=== PATIENT | female | born 1950 | race Caucasian/White ===

== ENCOUNTER 2019-03-16 05:10 | Day surgery (SDC) | payer MEDICARE ==
[2019-03-15 11:40] LABS: HEMATOCRIT 38.3 % (36.0-48.0); HEMOGLOBIN 13.2 g/dL (12-16); MCH 31.8 pg (26.0-34.0); MCHC 34.5 g/dL (31.0-37.0); MCV 92.3 fL (80.0-100.0); MEAN PLATELET VOLUME 10.3 fL (7.4-10.4); PLATELET COUNT 221 10x3/uL (130-400); RBC 4.15 10x6/uL (4.00-5.40); RDW 13.4 % (11.5-14.5); WBC 8.3 10x3/uL (4.8-10.8)
[2019-03-15 13:09] LABS: EOSINOPHILS 1 % (0-7); LYMPHOCYTES 46 % (15-50); MONOCYTES 6 % (2-11); NEUTROPHILS 46 % (40-80); PLATELET ESTIMATE NORMAL
[~2019-03-16] VITALS: Ht 162.6 cm; Wt 85.5 kg
[2019-03-16] VITALS (7 sets, daily range): BP systolic 131–144; BP diastolic 60–77; Ht 162.6 cm; Wt 85.5 kg
[~2019-03-16 05:10] MED LIST: LEVOTHYROXINE75 MCG PO; RESTORIL15 MG PO
[2019-03-16] MEDS ORDERED: [UNRECOGNIZED DRUG - OTHER] (06:21)
--- NOTE | 2019-03-16 07:55 | NUR ---
16FR PINTO PLACED USING STERILE TECHNIQUE. INFLATED BALLOON WITH 10CC OF FLUID, SECURED STAT LOCK TO L.INNER THIGH, IMMEDIATE FLOW OF 50CC CLEAR YELLOW URINE. WILL HANG TO GRAVITY ORDERED VERBAL ORDER PER . WILL CTM.
--- NOTE | 2019-03-16 08:30 | NUR ---
PT TO LABOR AND DELIVERY BY TAI WITH CIERRA JEWEL INSPECTOR. WILL RETURN TO RECEIVE PT TO 1220 WHEN THIS RN IS FINISHED WITH ANOTHER PT.
--- NOTE | 2019-03-16 08:45 | NUR ---
RECEIVED PT TO 1220 FROM RR RN, CIERRA, WITH REPORT RECEIVED PRIOR. PT IS POST D/C AND IUD REMOVAL. ABDOMEN PALPATES SOFT. PT HAS 30 ML PINTO BULB PLACED IN UTERUS BY , AND HAS PINTO CATH DRAINING YELLOR URINE. SCANT AMOUNT DRIED BLOOD NOTED ON CHUX UNDERNEATH. NO BRIGHT RED BLEEDING NOTED. NO DRAINAGE NOTED IN PINTO BAG CONNECTED TO UTERINE PINTO BULB. PT DENIES PAIN OR NEEDS AT THIS TIME. PT DENIES NAUSEA, SOB, OR DIFFICULTY BREATHING. SRUP X2, CALL LIGHT AND PHONE WITHIN REACH. AT BEDSIDE.
--- NOTE | 2019-03-16 09:30 | NUR ---
PT IS SITTING UP IN THE BED, TALKING TO ARNNIG-[id number]. MEDICATION ADM RECORD REVIEWED WITH PT. SEE EMAR FOR ALL MEDS ADM BY THIS RN. ICE WATER AND JELLO SERVED TO PT. PT CONTINUES TO DENY NAUSEA, SOB, OR DIFFICULTY BREATHING. SRUP X2, CALL LIGHT AND PHONE WITHIN REACH.
--- NOTE | 2019-03-16 10:15 | NUR ---
PT SITTING UP IN THE BED, HAS TOLERATED JELLO AND ICE WATER WITHOUT NAUSEA. PT IS TALKING ON HER CELL PHONE. VISITOR AT BEDSIDE. PT DENIES ALL NEEDS AT THIS TIME.
--- NOTE | 2019-03-16 12:45 | NUR ---
DR. HOPE ON UNIT.
--- NOTE | 2019-03-16 12:50 | NUR ---
DR. HOPE TO PT'S ROOM, TO DISCUSS PLAN OF CARE.
--- NOTE | 2019-03-16 13:35 | NUR ---
IV TO LEFT AC DC'D PER VERBAL ORDER OF DR. HOPE, AND 22 G CATH ON SECOND ATTEMPT TO RIGHT HAND, SL AND FLUSHED WITH 10 CC'S NS, FLUSHES EASILY WITHOUT REDNESS OR SWELLING TO IV SITE. PT HAS FINISHED EATING HER LUNCH, AND DENIES ALL OTHER NEEDS. SRUP X2, CALL LIGHT AND PHONE WITHIN REACH.
--- NOTE | 2019-03-16 16:15 | NUR ---
DR. HOPE RETURNS CALL, PROGRESS REPORT GIVEN TO MD, AND INFORMED MD THAT PT IS STATING NURSE IS SUPPOSED TO START DEFLATING THE PINTO BULB PLACED IN UTERUS. PT IS ALSO ASKING ABOUT TAKING OUT THE URINARY PINTO CATH. DR. HOPE STATES HE WILL PLACE ORDERS A NURSING MESSAGE FOR 0400 03/17/19, TO DEFLATE PINTO BULB IN UTERUS BY 15 CC'S, AND START PAD COUNT AT THAT TIME. DR. HOPE ALSO STATES IT IS UP TO THE PATIENT IF SHE WANTS TO TAKE OUT THE URINARY PINTO CATH NOW OR WAIT UNTIL AM, SHE WILL STILL HAVE THE UTERINE PINTO CATH IN PLACE. TO PT'S ROOM, PLAN OF CARE DISCUSSED WITH PT. PT OPTS TO LEAVE URINARY PINTO CATH IN PLACE UNTIL AM. SCANT AMOUNT OF BRIGHT RED BLOOD NOTED ON PERIPAD, PERICARE DONE WITH WARM WET WASHCLOTHS, CHUX AND PINK PAD CHANGED, AND NEW PERIPAD PLACED. PINTO CATH EMPTIED WITH TOTAL OF 1200 ML'S YELLOW URINE EMPTIED. VS OBTAINED. PT IS TALKING AND LAUGHING WITH VISITOR WHILE VS ARE OBTAINED. PT DENIES NAUSEA, PAIN, DIFFICULTY BREATHING, DIZZINESS, OR SOB AT THIS TIME. PT STATES THE PERCOCET DOES SEEM TO MAKE HER MOUTH VERY DRY, OFFERED TO CALL MD TO CHANGE PAIN MED, PT STATES SHE WILL STAY WITH THE PERCOCET FOR NOW. LARGE MUG OF ICE WATER SERVED TO PT. SRUP X2, CALL LIGHT AND PHONE WITHIN REACH.
--- NOTE | 2019-03-16 17:00 | NUR ---
DIETARY SERVES SUPPER TRAY, PT DENIES NEEDS AT THIS TIME.
--- NOTE | 2019-03-16 17:40 | NUR ---
DR HOPE PHONES UNIT AND GIVES ORDER FOR CIPRO AND FLAGYL NOW, AND AMBIEN AT BEDTIME. SEE DEMONSTRATOR SALES FOR DOSAGE DETAILS.
--- NOTE | 2019-03-16 18:43 | NUR ---
DR HOPE CALLS UNIT, GIVES ORDERS TO DEFLATE UTERINE CATH AT 0400 BY 15MLS ONLY, WATCH BLEEDING TILL 0600, IF NO BRIGHT RED OR BRISK BLEEDING , MAY REMOVE UTERINE CATH AT 0700, IF BRIGHT RED OR BRISK BLEEDING NOTED, RE-INLFATE UTERINE CATH BALLOON, MAKE PT NPO AFTER MIDNIGHT, AND INITIATE LR TO INFUSE AT 150 ML/HR AFTER MIDNIGHT, ORDERS READ BACK AND VERIFIED
--- NOTE | 2019-03-16 19:15 | NUR ---
ASSESSMENT PER FLOW SHEET, VS OBTAINED, SALINE LOCK IN RIGHT HAND INTACT WITH NO REDNESS OR EDEMA, SALINE LOCK FLUSHED WITH 10MLS OF NS WITH NO DIFFICULTY, PINTO CATH INTACT DRAINING CLEAR YELLOW URINE, EMPTIED 350 MLS FROM PINTO CHAMBER TO PINTO BAG, UTERINE CATH IN PLACED, ONDINA PAD CHANGED, SCANT BLEEDING NOTED ON ONDINA PAD, PT DENIES PAIN, REQUESTED AND SERVED FRESH H20, POC DISCUSSED WITH PT REGARDING DR MG ORDERS, PT VERBALIZES UNDERSTANDING, PT DENIES FURTHER NEEDS AT THIS TIME
--- NOTE | 2019-03-16 20:06 | NUR ---
ADM RADHA PER MD ORDERS, SEE EMAR, PT INFORMED THAT I WILL BE MOVING HER SHORTLY TO ANOTHER ROOM, PT VERBALIZES UNDERSTANDING, S/O AT BEDSIDE
--- NOTE | 2019-03-16 20:30 | NUR ---
PT TRANSFERRED VIA WC TO ROOM 1257 WITH ALL BELONGINGS, PT ORIENTED TO ROOM, BED IN LOW POSITION, SIDE RAILS X 2, CALL LIGHT IN REACH
--- NOTE | 2019-03-16 21:10 | NUR ---
PT DESIGN ENGINEER MARINE EQUIPMENT LIGHT, PT REPORTS NEEDING TO HAVE A BM, ASSISTED PT UP TO BR, GAIT STEADY, PT INST TO USE CALL LIGHT FOR ANY ASSISTANCE WHILE IN BR OR CALL LIGHT WHEN BACK TO BED
--- NOTE | 2019-03-16 21:31 | NUR ---
PT FLARER LIGHT, PT REPORTS NO BM AT THIS TIME, ADM ADALI AND EMANUEL PER MD ORDERS, SEE EMAR, UTERINE CATH NOTED TO BE CLOTTED, WILL IRRIGATE
--- NOTE | 2019-03-16 21:36 | NUR ---
THIS RN AND ELIDIA COLLIER, RN TO ROOM, UTERINE CATH IRRIGATED WITH 52 MLS OF WATER AND 10 MLS OF NS, FLUSHED WITH NO DIFFICULTY, UTERINE CATH DRAINING PROPERLY AT THIS TIME, INFORMED PT NOT TO GET UP BY SELF SINCE SHE HAS TAKEN THE AMBIEN, PT VERBALIZES UNDERSTANDING, DENIES NEEDS AT THIS TIME, BED IN LOW POSITION, SIDE RAILS X 2, CALL LIGHT IN REACH
--- NOTE | 2019-03-16 22:23 | NUR ---
PT RESTING WITH EYES CLOSED, RESP QUIET, NO DISTRESS NOTED, LEFT UNDISTURBED AT THIS TIME, BED IN LOW POSITION, SIDE RAILS X 2, CALL LIGHT IN REACH
[2019-03-17 00:19] VITALS: BP 141/78
--- NOTE | 2019-03-17 00:19 | NUR ---
PT RESTING WITH EYES CLOSED, AROUSES TO SOFT VERBAL STIMULATION, VS OBTAINED, SALINE LOCK CONVERTED TO IV, LR INITIATED VIA PUMP INFUSING AT 150 ML/HR PER MD ORDERS, SEE EMAR, PINTO CATH EMPTIED, ONDINA PAD CHANGED, SCANT VAG BLEEDING NOTED, PT DENIES NEEDS OR PAIN AT THIS TIME, BED IN LOW POSITION, SIDE RAILS X 2, CALL LIGHT IN REACH
[2019-03-17 04:12] VITALS: BP 156/79
--- NOTE | 2019-03-17 04:12 | NUR ---
THIS RN AND MANSI RICHMOND, ANDREA TO ROOM, VS OBTAINED, I&O'S COLLECTED, MANSI RICHMOND, ANDREA REMOVED 15 ML FROM UTERINE CATH BALLOON, CLEAN ONDINA PADS APPLIED, WILL CONTINUE TO MONITOR, PT DENIES NEEDS OR PAIN AT THIS TIME
--- NOTE | 2019-03-17 04:40 | NUR ---
PT AWAKE, PAD CHECKED, SCANT BLEEDING NOTED ON ONDINA PAD, WILL CONTINUE TO MONITOR, PT C/O SLIGHT CRAMPING, REQUESTS PAIN MED, WILL ADM PERCOCET, SCD'S CONTINUE ON AND WORKING PROPERLY
--- NOTE | 2019-03-17 04:48 | NUR ---
ADM PERCOCET PER MD ORDERS, SEE EMAR WITH A SMALL SIP OF H2O, CLEAN SHEET AND BLANKET PROVIDED, SMALL DRAINAGE NOTED IN UTERINE BAG, PT DENIES FURTHER NEEDS, BED IN LOW POSITION, SIDE RAILS X 2, CALL LIGHT IN REACH
--- NOTE | 2019-03-17 05:31 | NUR ---
DR HOPE CALLS UNIT, REPORT OF VS, I&O, FLUSHING OF UTERINE CATH, UTERINE DEFLATED 15MLS, SCANT-LITE VAG BLEEDING, PAIN MED ADM, ORDERS RECEIVED TO REMOVE PINTO CATH AND UTERINE CATH AFTER DAY SHIFT DOES ASSESSMENT, BEGIN PAD COUNT, ORDERS READ BACK AND VERIFIED
--- NOTE | 2019-03-17 05:38 | NUR ---
PT AROUSES TO OPENING OF DOOR, POC DISCUSSED WITH PT, PT VERBALIZES UNDERSTANDING, STATES "I DON'T WANT TO STAY HERE ALL DAY", INFORMED PT TO TALK TO DR HOPE ABOUT THAT, PT VERBALIZES UNDERSTANDING, SCANT VAG BLEEDING NOTED WITH NO CLOTS, LITE DRAINAGE NOTED IN UTERINE CATH, PT REQUESTED WASH CLOTH TO WAS FACE, 2 CUPS OF WATER PROVIDED TO BRUSH TEETH, PT INST NOT TO DRINK THE WATER, PT VERBALIZES UNDERSTANDING, PT STATES "OH, I WON'T", PT INST TO USE CALL LIGHT FOR ANY ASSISTANCE
--- NOTE | 2019-03-17 06:37 | NUR ---
PT TALKING ON PHONE, PAD CHECKED, SCANT VAG BLEEDING WITH NO CLOTS, PT DENIES NEEDS OR PAIN AT THIS TIME
--- NOTE | 2019-03-17 07:30 | NUR ---
Dr Crockett and this rn to bedside. Pt is awake and alert asking md if she could eat or drink coffee, he explains to her not at this time but possibly in the next 1-2 hours. Md goes over plan of care to remove glaser cath and uterine pressure cath and begin pad count x 1hour. pt states her understanding and denies any questions or concerns.
--- NOTE | 2019-03-17 07:45 | NUR ---
Stone cath removed with 350ml clear urine noted. Uterine pressure cath bulb has 15ml remaining that is removed slowly by gravity, small amount of ser-sang fluid noted with removeal. pt tolerates well and able to sit up on side of the bed and ambulate to bathroom per self. Voids about 100ml, no clots noted. Quin pad and mesh briefs provided and pt states understanding to let nurse know when she voids next. bed linens changed while she is in the bathroom.
[2019-03-17 08:00] VITALS: BP 129/66
--- NOTE | 2019-03-17 08:45 | NUR ---
PT HAS NOT FELT ANY "GUSH" OF BLEEDING AND DENIES HAVING TO CHANGE PADS. SHE DOES GET UP TO BATHROOM SO THAT PAD COULD BE CHECKED. LIGHT BLEEDING NOTED TO PAD WITHOUT SATURATION. WILL CALL REPORT TO DR HOPE, PT UNDERSTANDS THAT SHE STILL CAN NOT EAT OR DRINK UNTIL ORDER IS CHANGED BY MD. SHE DENIES PAIN OR DISCOMFORT AT THIS TIME.
--- NOTE | 2019-03-17 09:40 | NUR ---
ORDERS RECEIVED FROM DR HOPE FOR REGULAR DIET ALSO PT TO AMBULATE ABOUT ROM OR IN HALLS. RECHECK PAD COUNT IN AN HOUR AND NOTIFY DR HOPE.
--- NOTE | 2019-03-17 10:15 | NUR ---
PT TERRY IN HALLS WITH FRIEND AT HER SIDE. WILL CALL WHEN SHE IS BACK TO HER ROOM.
--- NOTE | 2019-03-17 10:35 | NUR ---
PT CALLS FOR NURSE. THIS RN AT BEDSIDE, PT STATES THAT SHE HAS WENT TO BATHROOM AND CHANGED ONDINA PAD, SCANT BLEEDING NOTED AND DOES NOT SATURATE THRU PAD. PT DENIES PAIN AND IS ASKING TO GO HOME. WILL CALL REPORT TO .
--- NOTE | 2019-03-17 10:45 | NUR ---
DR HOPE CALLS UNIT, REPORT GIVEN THAT PT HAS CHANGED PAD TWICE SINCE 744 AND THE BLEEDING HAS DECREASED FROM LIGHT TO SCANT, NO CLOTS NOTED. ALSO REPORTED THAT PT HAS AMBULATED TO WAITING AREA X 2 WITHOUT COMPLAINT OF INCREASED BLEEDING. MD UNDERSTANDS THAT PT IS DRESSED AND REQUESTING TO GO HOME. ORDERS RECEIVED FOR TYLENOL 4, 1 PO EVERY 6HRS PRN PAIN #30, TO BE CALLED IN TO PT PHARMACY OF CHOICE. MD REQUEST THAT PT BE MADE AWARE THAT HE WOULD BE CALLING HER LATER ON TODAY TO GO OVER RESULTS FROM D&C.
--- NOTE | 2019-03-17 11:00 | NUR ---
VERBAL AND WRITTEN D/C INSTRUCTIONS GONE OVER WITHOUT QUESTIONS. PT STATES UNDERSTANDING TO CALL OR RETURN TO ER IF SHE IS HAVING TO CHANGE ONDINA PAD MORE THAN ONCE AN HOUR. IV REMOVED FROM RIGHT HAND, CATH NOTED TO BE INTACT. PT ASK THAT SCRIPT FOR PAIN MED BE CALLED TO [facility].
--- NOTE | 2019-03-17 11:10 | NUR ---
PT TAKEN OUT BY WHEELCHAIR, HOME BY PRIVATE CAR.
--- NOTE | 2019-03-23 06:43 | OP ---
PATIENT NAME: MARVA JOSEPH MEDICAL RECORD: [id number] :48 LOCATION:D.[facility] ADMISSION DATE: SURGEON: VISHAL HOPE MD DATE OF OPERATION: 03/16/2019 PREOPERATIVE DIAGNOSES: 1. Postmenopausal bleeding. 2. Intrauterine mass. 3. Retained intrauterine device. POSTOPERATIVE DIAGNOSES: 1. Postmenopausal bleeding. 2. Intrauterine mass. 3. Retained intrauterine device. PROCEDURE: 1. Exam under anesthesia. 2. Removal of Lippes loop IUD. 3. Dilation and curettage. SURGEON: Vishal Hope MD REAL ESTATE OFFICE SUPERVISOR: [place]. ANESTHETIC: General. FINDINGS: Cervix is unremarkable. IUD is removed with Matheus stone forceps and found to be a Lippes loop. Copious amounts of tissues returned at the time of curettage with active bleeding. SPECIMENS REMOVED: 1. Lippes loop. 2. Endometrial curettings. SPECIMEN DISPOSITION: All specimens to pathology. ESTIMATED BLOOD LOSS: 250 cc. FLUID: 1200 cc lactated Ringer's. URINE OUTPUT: Quantity sufficient void prior to this procedure. COMPLICATIONS: Vaginal bleeding. DRAINS: Stone catheter and Stone bulb in the uterus. INDICATIONS: The patient is a 68-year-old female seen for intrauterine mass and postmenopausal bleeding, 1 year ago. The patient declined intervention at that time. The patient continues to have bleeding and presents for removal of IUD and evaluation of postmenopausal bleeding. DESCRIPTION OF PROCEDURE: After informed consent was assured, the patient was taken to the operating room where anesthetic was obtained. The patient was placed in [facility] and prepped and draped. A speculum was introduced in the vagina and the cervix was visualized. Bimanual exam prior to this OPERATIVE REPORT [id number] MARVA JOSEPH reveals an enlarged uterus. Cervix was grasped with single tooth tenaculum and using Matheus stone forceps, the IUD strings were grasped and the IUD pulled through the cervical opening. Using a needle commercial trailer truck driver, the lower body of the IUD was grasped and it was removed from the uterus. The active bleeding occurs after removal of IUD. Curettage now performed with copious returns of tissue. The patient continues to bleed after conclusion of curettage and a Stone catheter was placed. A 24-Thai Stone catheter was placed and inflated. Sponge, lap, and needle counts correct times 2. The patient was taken down from the stirrups and went to the recovery area in stable condition. The patient will be managed expectantly on the castle. TRANSINT:[id number] Voice Confirmation ID: [id number] DOCUMENT ID: [id number] VISHAL HOPE MD at 0643 CC: [id number] DICTATION DATE: 03/16/19 0744 SANDWICH HAND: 03/16/19 1107 [facility] 03/17/[address] [address]
== END 2019-03-17 11:15 | disposition home or self-care (01) ==
LOC: D.LD 05:10 → D.OPS 05:10 → D.PAN 07:00 → D.WS 07:49 → D.LD 20:54 → D.OPS 03-17 11:15
PROVIDERS: ATTEND Obstetrics & Gynecology
DX: C54.1 Malignant neoplasm of endometrium (principal); Z30.432 Encounter for removal of intrauterine contraceptive device; Z01.812 Encounter for preprocedural laboratory examination

== ENCOUNTER 2019-04-26 09:11 | Inpatient (IN) | payer MEDICARE ==
[~2019-04-26] VITALS: Ht 162.6 cm; Wt 86.6 kg
[~2019-04-26 09:11] MED LIST changes: +[UNRECOGNIZED DRUG - OTHER]
[2019-04-26] MEDS ORDERED: ELIQUIS2.5 MG PO (09:36)
[2019-04-26] MEDS ORDERED: OXYCODONE HCL5 M1 PO (09:36)
[2019-04-26] MEDS ORDERED: COLACE100 MG PO (09:37)
[2019-04-26 10:00] LABS: BASOPHILS 0.2 % (0-2); EOSINOPHILS 1.4 % (0-7); HEMATOCRIT 38.5 % (36.0-48.0); HEMOGLOBIN 12.9 g/dL (12-16); IMMATURE GRANULOCYTES 0.1 % (0-5); LYMPHOCYTES 49.7 % (15-50); MCH 31.3 pg (26.0-34.0); MCHC 33.5 g/dL (31.0-37.0); MCV 93.4 fL (80.0-100.0); MEAN PLATELET VOLUME 9.8 fL (7.4-10.4); MONOCYTES 7.8 % (2-11); NEUTROPHILS 40.8 % (40-80); PLATELET COUNT 263 10x3/uL (130-400); RBC 4.12 10x6/uL (4.00-5.40); RDW 13.8 % (11.5-14.5); WBC 8.6 10x3/uL (4.8-10.8)
[2019-04-26 10:10] LABS: APTT 31.9 SECONDS (22.8-39.4); INR 1.07 (0.85-1.17); PROTIME 13.5 SECONDS (11.6-15.0)
[2019-04-26 10:11] LABS: D-DIMER-QUANTITATIVE 0.57 ug/mLFEU (0.20-0.54)
[2019-04-26 10:14] LABS: ALBUMIN 3.6 g/dL (3.4-5.0); ALKALINE PHOSPHATASE 100 U/L (46-116); ALT (SGPT) 22 U/L (10-68); BILIRUBIN - TOTAL 0.26 mg/dL (0.2-1.3); CALC OSMOLALITY 293 mosm/kg (275-300); CALCIUM 8.3 mg/dL (8.5-10.1); CARBON DIOXIDE 30.7 mmol/L (21.0-32.0); CHLORIDE - SERUM 106 mmol/L (98-107); CREATININE - SERUM 0.8 mg/dL (0.6-1.3); GLUCOSE 186 mg/dL (74-106); PROTEIN - SERUM 6.9 g/dL (6.4-8.2); SODIUM 144 mmol/L (136-145); UREA NITROGEN 19 mg/dL (7-18); eGFR NON AFRICAN AMERICAN 75 mL/min (90-120)
[2019-04-26 10:26] LABS: CKMB 0.6 U/L (0.0-3.6); CREATINE KINASE 56 UL (21-215); PRO BNP 23 pg/mL (0-125)
[2019-04-26 10:27] LABS: TROPONIN-I < 0.017 ng/mL (0.000-0.060)
[2019-04-26] MEDS ORDERED: IBUPROFEN600 MG (15:25)
[2019-04-26 15:33] VITALS: BP 136/57; BMI 32.8
--- NOTE | 2019-04-26 15:40 | NUR ---
NEW PATIENT TO ROOM VIA WC ACCOMPANIED BY ER STAFF. PATIENT APPEARS IN NO ACUTE DISTRES. PATIENT DENIES NEEDS OR 0PAIN. 20 G IV TO LT AC PATENT AND SL. VSS. PATIENT CHANGED INTO HOSPITAL GOWN. DR MASCORRO IN ROOM. NEW ORDERS RECEIVED. WILL CONTINUE WITH PLAN OF CARE. ORIENTED TO ROOM AND CL. SR UP X 2 BED IN LOW POSITION AND CALL LIGHT INR EACH.
--- NOTE | 2019-04-26 15:58 | NUR ---
PATIENT SITTING UP IN BED. GAVE PATIENT CUP OF FRESH COFFEE. WILL CONTINUE TO MONITOR. SR UP X 2 BED IN LOW POSITION AND CALL LIGHT IN REACH.
[2019-04-26 17:01] LABS: CKMB 0.5 U/L (0.0-3.6); CREATINE KINASE 41 UL (21-215); TROPONIN-I < 0.017 ng/mL (0.000-0.060)
[2019-04-26 18:30] LABS: APPEARANCE CLEAR (CLEAR); BILIRUBIN NEGATIVE (NEGATIVE); COLOR YELLOW (YELLOW); GLUCOSE NEGATIVE (NEGATIVE); KETONE NEGATIVE (NEGATIVE); NITRITE NEGATIVE (NEGATIVE); PROTEIN NEGATIVE (NEGATIVE); UROBILINOGEN NORMAL (NORMAL)
[2019-04-26 19:20] VITALS: BP 126/66
--- NOTE | 2019-04-26 20:35 | NUR ---
EVENING ROUNDS COMPLETED. VSS, AAOX3, NO S/S OF RESPIRATORY DISTRESS. PT C/O PAIN IN ABDOMEN. PRN PAIN MEDS GIVEN. SPOUSE AT BEDSIDE. PT DENIES ANY FURTHER NEEDS AT THIS TIME. WILL CPOC. CL WITHIN REACH, BED IN LOW, SR UP X2.
[2019-04-26 23:41] LABS: CKMB 0.4 U/L (0.0-3.6); CREATINE KINASE 45 UL (21-215)
[2019-04-26 23:44] LABS: TROPONIN-I < 0.017 ng/mL (0.000-0.060)
[2019-04-27] VITALS: BP 134/76
[2019-04-27 05:22] VITALS: BP 126/54
[2019-04-27 06:52] LABS: BASOPHILS 0.2 % (0-2); EOSINOPHILS 2.9 % (0-7); HEMATOCRIT 40.5 % (36.0-48.0); HEMOGLOBIN 13.1 g/dL (12-16); IMMATURE GRANULOCYTES 0.2 % (0-5); LYMPHOCYTES 50.6 % (15-50); MCHC 32.3 g/dL (31.0-37.0); MEAN PLATELET VOLUME 10.1 fL (7.4-10.4); MONOCYTES 8.6 % (2-11); NEUTROPHILS 37.5 % (40-80); PLATELET COUNT 254 10x3/uL (130-400); RBC 4.23 10x6/uL (4.00-5.40); RDW 14.3 % (11.5-14.5)
[2019-04-27 07:04] LABS: MCV 95.7 fL (80.0-100.0)
[2019-04-27 07:30] LABS: ALBUMIN 3.6 g/dL (3.4-5.0); ALKALINE PHOSPHATASE 81 U/L (46-116); ALT (SGPT) 23 U/L (10-68); BILIRUBIN - TOTAL 0.35 mg/dL (0.2-1.3); CALCIUM 8.9 mg/dL (8.5-10.1); CARBON DIOXIDE 25.7 mmol/L (21.0-32.0); CHLORIDE - SERUM 104 mmol/L (98-107); CKMB 0.7 U/L (0.0-3.6); CREATINE KINASE 53 UL (21-215); MAGNESIUM - SERUM 1.8 mg/dL (1.8-2.4); PROTEIN - SERUM 6.7 g/dL (6.4-8.2); SODIUM 141 mmol/L (136-145); UREA NITROGEN 15 mg/dL (7-18)
[2019-04-27 07:31] LABS: CALC OSMOLALITY 282 mosm/kg (275-300); CREATININE - SERUM 0.5 mg/dL (0.6-1.3); GLUCOSE 111 mg/dL (74-106); POTASSIUM - SERUM 4.7 mmol/L (3.5-5.1); TROPONIN-I < 0.017 ng/mL (0.000-0.060); eGFR NON AFRICAN AMERICAN > 90 mL/min (90-120)
--- NOTE | 2019-04-27 08:00 | NUR ---
PATIENT LYING IN BED, IN NO ACUTE DISTRESS. AWAKE, ALERT, AND ORIENTED X 3. DENIES ANY PAIN, BED IN LOW POSITION, SR UP X 2. WILL CONTINUE TO MONITOR.
--- NOTE | 2019-04-27 08:45 | NUR ---
ECHOCARDIOGRAM DONE AT BEDSIDE.
--- NOTE | 2019-04-27 13:00 | NUR ---
DR. MASCORRO HERE TO SEE PATIENT. OKAY TO DISCHARGE FROM HIS POINT OF VIEW. DR. DINESH MODI [facility] CALLED RE; DISCHARGE ORDER.
--- NOTE | 2019-04-27 14:22 | NUR ---
DISCHARGE ORDER RECEIVED FROM DR. MODI.
--- NOTE | 2019-04-27 15:30 | NUR ---
DISCHARGE INSTRUCTIONS REVIEWED WITH PATIENT. IV DISCONTINUED PER PROTOCOL. AMULATED TO FRONT DOOR AND LET WITH SPOUSE TO PRIVATE CAR.
[2019-04-27 15:40] VITALS: Ht 162.6 cm; Wt 86.6 kg
--- NOTE | 2019-04-29 13:28 | CN ---
PATIENT NAME:MARVA JOSEPH MEDICAL RECORD: [id number] : 48 LOCATION:D. D.1208 ADMIT DATE: 04/26/19 ACCOUNT: [id number] CONSULTING PHYSICIAN: JOSE ARBOLEDA MD REFERRING PHYSICIAN: DINESH MODI MD DATE OF CONSULTATION: 04/27/2019 DIAGNOSES: 1. Shortness of breath. 2. Status post vaginal hysterectomy last week. 3. Family history of coronary artery disease. HISTORY OF PRESENT ILLNESS: Mrs. Joseph presents with worsening shortness of breath. She is status post vaginal hysterectomy last week; however, CTA was with no evidence of pulmonary embolus. She is on Eliquis. She has a family history of coronary artery disease. Echocardiogram was overall normal. PHYSICAL EXAMINATION: CONSTITUTIONAL/GENERAL APPEARANCE: Well nourished, well developed, appears stated age. EYES: Lids and conjunctivae noninjected. No discharge. No pallor. ENT: Lips within normal limit. No cyanosis. No pallor. NECK: Carotid arteries, bilateral normal upstroke. No bruits. No thrills. No jugular venous pressure or distention. CERVICAL LYMPH NODES: Nontender. Nonenlarged. THYROID: Not enlarged. No nodules. CARDIOVASCULAR: Precordial exam, nondisplaced. No heaves or pericardial thrills. Rate and rhythm, regular. Heart sounds, normal S1, normal S2. No S3, no gallop, no rub. Systolic murmur, not heard. Diastolic murmur, not heard. RESPIRATORY: Respiratory effort, unlabored. Normal curvature. No thoracic deformity. No chest wall tenderness. Percussion, resonant. Auscultation, clear. No wheezes, no rales, no rhonchi. ABDOMEN: Soft, nondistended, nontender. No abdominal pain, no vomiting and normal appetite. MUSCULOSKELETAL: No joint tenderness, normal gait, normal tone. SKIN: Warm and dry. REVIEW OF SYSTEMS: The patient reports easy bruising but reports no swollen glands. The patient reports no fever, no night sweats, no significant weight gain, no significant weight loss. No significant exercise tolerance. The patient reports no dry eyes, no irritation, no vision change. Patient reports no difficulty hearing and no ear pain. Patient reports no frequent nose bleeds or nose and sinus problems. Patient reports on arm pain on exertion. No shortness of breath while lying down. No history of heart murmur. Patient reports no cough, no wheezing or coughing up blood. Patient reports no abdominal pain, no vomiting. Normal appetite. No diarrhea and not vomiting blood. No nausea and no constipation. Patient reports no incontinence. No difficulty urinating. No hematuria. No increased frequency. Patient reports no muscle aches. No weakness, no arthralgias, no back pain. No swelling of the extremities. Patient reports no abnormal mole, no jaundice, no rashes. Reports no loss of consciousness. No weakness and no numbness. No seizures, dizziness, or headaches. The patient reports no depression, no sleep disturbance, feeling safe in a relationship and no alcohol abuse. Patient reports on fatigue. Reports no runny nose or sinus pressure. No itching, no hives, and no frequent sneezing. CONSULT REPORT [id number] MARVA JOSEPH FAMILY HISTORY: Negative for coronary artery disease, negative for hypertension. SOCIAL HISTORY: She lives in the [place] area. Denies smoking or ETOH. OVERALL IMPRESSION: Shortness of breath, very well may be cardiac in nature. She wants to leave today. We will risk stratify with stress testing Cardiolite imaging as an outpatient. TRANSINT:[id number] Voice Confirmation ID: [id number] DOCUMENT ID: [id number] JOSE ARBOLEDA MD at 1328 CC: [id number] DICTATION DATE: 04/27/19 1005 ORIENTAL RUG REPAIRER: 04/27/19 1047 DIS IN 04/27/19 [facility] [address] [place] [address]
--- NOTE | 2019-05-02 13:56 | EC ---
PATIENT:MARVA JOSEPH DATE OF SERVICE: 04/26/19 SEX: F MEDICAL RECORD: [id number] DATE OF : 48 LOCATION:D.M3 D.120 AGE OF PATIENT: 68 ADMISSION DATE: 04/26/19 REFERRING PHYSICIAN: INTERPRETING PHYSICIAN: ALEX MSEA MD ECHOCARDIOGRAM REPORT ECHO CHARGES 4 ECHO COMPLETE Date: 04/27/19 CLINICAL DIAGNOSIS: SOB, HYPOXIA ECHOCARDIOGRAPHIC MEASUREMENTS (adult normal given) AC root (d.<3.7cm) 3.1 cm LV Septum d (<1.2 cm> 0.9 cm Valve Excursion 1.7 cm LV Septum (systole) 1.1 cm Left Atria (s.<4.0cm> 3.0 cm LVPW d(<1.2cm) 1.0 cm RV (d.<2.3cm) 2.6 cm LVPW (sytole) 1.2 cm LV diastole(<5.6CM) 5.3 cm MV E-F(>70mm/sec) cm LV systole 4.5 cm LVOT Diameter 1.9 cm MV exc.(>10mm) cm Est.ejection fraction (50-75%) % DOPPLER: LVIT cm/sec A 78 cm/sec E 63 cm/sec LA cm/sec RVSP 16.4 mmHg LVOT 103 cm/sec AOP1/2T m/s Asc. Ao 157 cm/sec RVOT 94 cm/sec RA cm/sec PA 94 cm/sec AV Gradient Peak 9.8 mmHg AV Mean 5.3 mmHg AV Area 2.0 cm MV Gradient Peak 2.4 mmHg MV Mean 1.5 mmHg MV Area cm COMMENTS: Rack Puncher: Gabino PATINO Clipping Marker: 3 Dr. Nation TAPE# PACS Pericardial Effusion N DATE OF SERVICE: Adequate 2-D, color-flow and spectral Doppler, and M-mode. No LVH. LV internal dimensions are normal. Wall motion is normal. EF greater than 55%. Aortic valve is tricuspid. No evidence of stenosis by Doppler interrogation. Left atrium is normal at 3.0 cm. Mitral valve shows no prolapse. Trace MR. Right-sided chambers grossly normal. Trace TR. TRANSINT:[id number] Voice Confirmation ID: [id number] DOCUMENT ID: [id number] ECHOCARDIOGRAM REPORT [id number] MARVA JOSEPH ALEX MESA MD at 1356 CC: [id number] DICTATION DATE: 04/27/19 1338 DREDGE LEVER OPERATOR: 04/28/19 0943 DIS IN 04/27/19 [facility] [address] [place] [address]
== END 2019-04-27 15:30 | disposition home or self-care (01) | DRG 189 ==
LOC: D.ER 09:11 → D.M3 12:31
PROVIDERS: Family Medicine; ADMIT Emergency Medicine; ATTEND Emergency Medicine
DX: J96.01 Acute respiratory failure with hypoxia (principal); E03.9 Hypothyroidism, unspecified; E66.9 Obesity, unspecified; Z68.32 Body mass index [BMI] 32.0-32.9, adult; R53.1 Weakness; E83.51 Hypocalcemia; Z85.42 Personal history of malignant neoplasm of other parts of uterus

== ENCOUNTER → 2020-03-12 07:39 | Outpatient (CLI) | payer MEDICARE ==
[2019-04-27 15:40] VITALS: BMI 32.8
[~2020-03-12 07:39] MED LIST changes: +COLACE100 MG PO; +ELIQUIS2.5 MG PO; +IBUPROFEN600 MG; +OXYCODONE HCL5 M1 PO
== END | disposition home or self-care (01) ==
LOC: D.RAD 03-08 08:00
PROVIDERS: ATTEND Emergency Medicine
DX: R13.19 Other dysphagia (principal)